=== PATIENT | female | born 1950 | race American Indian/Alaskan Native ===

== ENCOUNTER 2018-01-01 15:48 | Outpatient (CLI) | payer OTHER | END 2018-01-01 15:49 | disposition home or self-care (01) | LOC: LABHHL 15:48 | PROVIDERS: ATTEND Surgery | DX: N63.20 Unspecified lump in the left breast, unspecified quadrant (principal); R92.0 Mammographic microcalcification found on diagnostic imaging of breast | CPT/HCPCS: 88305 ==

== ENCOUNTER 2018-01-18 09:34 | Day surgery (SDC) | payer MEDICARE ==
[2018-01-18] MEDS ORDERED: DILAUDID IV PRN (10:27)
--- NOTE | 2018-01-18 10:27 | Anesthesia Day of Surgery ---
Anesthesia Day of Surgery - Day of Surgery Patient Examined: Yes Patient H&P Reviewed: Yes Patient is NPO: Yes Beta Blockers: Yes
--- NOTE | 2018-01-18 10:27 | Anesthesia Consultation ---
Anesthesia Consult and Med Hx Date of service: 01/18/18 - Airway Anesthetic Teeth Evaluation: Poor, Partials ROM Head & Neck: Adequate Mental/Hyoid Distance: Adequate Mallampati Class: Class II Intubation Access Assessment: Probably Good - Pulmonary Exam CTA: Yes - Cardiac Exam Cardiac Exam: RRR - Pre-Operative Health Status ASA Pre-Surgery Classification: ASA2 Proposed Anesthetic Plan: General - Cardiovascular System Hx Hypertension: Yes (OVER 10 YEARS) Hx Heart Murmur: Yes - Central Nervous System Hx Psychiatric Problems: No - Other Systems Hx Alcohol Use: Yes (OCCA) Hx Substance Use: No Hx Cancer: No Hx Obesity: Yes - Additional Comments Anesthesia Medical History Comments: Informed consent obtained
[2018-01-18] MEDS ORDERED: XYLOCAINE 1% 20 mL ONE ×2 (10:58→12:07)
[2018-01-18] MEDS ORDERED: NACL 0.9% 1000 ML 1,000 ML IV SCH (11:00)
[2018-01-18] MEDS ORDERED: ANCEF/STERILE WATER 2 GM/20 ML IV NR (11:00)
[2018-01-18] MEDS ORDERED: PEPCID IV NR (11:00)
--- NOTE | 2018-01-18 11:35 | Procedure Note ---
Date of procedure: 01/18/18 Pre-op diagnosis: lt breast lesion Post-op diagnosis: same Procedure: needle loc. Anesthesia: local Surgeon: GISEL JOSUE Estimated blood loss: none Pathology: none Condition: stable (surgery)
--- NOTE | 2018-01-18 11:38 | Mammography Report ---
Left breast needle localization: Examination performed using mammographic grid technique. A lateral approach was utilized. A breast marker is targeted. The skin was cleansed and 1% lidocaine used for local anesthesia. A 5 cm Navarro needle was placed confirm with mammography. The wire was introduced followed by removal of the needle with additional position confirmation with mammography. No complications encountered.
[2018-01-18] MEDS ORDERED: MARCAINE 0.25% INFILTRATI ONE ×2 (12:07→14:38)
[2018-01-18] MEDS ORDERED: DIPRIVAN 10 MG/ML IV ONE (14:09)
[2018-01-18] MEDS ORDERED: XYLOCAINE MPF 2% ONE (14:09)
[2018-01-18] MEDS ORDERED: SUBLIMAZE ONE (14:10)
[2018-01-18] MEDS ORDERED: ePHEDrine SULFATE ONE (14:26)
[2018-01-18] MEDS ORDERED: XYLOCAINE 1% 20 mL INFILTRATI ONE (14:38)
[2018-01-18] MEDS ORDERED: NACL 0.9% IR ONE (14:38)
[2018-01-18] MEDS ORDERED: ZOFRAN ONE (14:43)
--- NOTE | 2018-01-18 15:30 | Short Stay Summary ---
Short Stay Documentation Date of service: 01/18/18 - History H&P: obtained from office - Allergies and Medications Current Medications: Allergies GLOVE POWDER Allergy (Uncoded 01/18/18 10:28) Itching Home Medications Medication Instructions Recorded Confirmed Last Taken Type Aspirin [Adult Low Dose Aspirin EC] 81 mg PO DAILY 01/15/18 01/18/18 01/10/18 History Cyclobenzaprine [Flexeril] 10 mg PO TID PRN 01/15/18 01/15/18 01/17/18 History Diclofenac Sodium 75 mg PO DAILY 01/15/18 01/18/18 12/18/17 History Lisinopril/Hydrochlorothiazide 1 each PO DAILY 01/15/18 01/18/18 01/18/18 07:00 History [Zestoretic 10-12.5 mg Tablet] Loratadine [Claritin] 10 mg PO DAILY 01/15/18 01/15/18 01/17/18 History Lovastatin [Altoprev] 20 mg PO QPM 01/15/18 01/15/18 01/17/18 History Metoprolol Tartrate 25 mg PO BID 01/15/18 01/15/18 01/18/18 07:00 History Multivitamin Tab W-MINERAL 1 each PO QD 01/15/18 01/15/18 01/17/18 History [Multiple Vitamin/Mineral (Theragran M)] [place]-3 Fatty Acids [Super Twin 1,250 mg PO DAILY 01/15/18 01/15/18 01/17/18 History Epa-Dha] Omeprazole 20 mg PO DAILY 01/15/18 01/15/18 01/17/18 History Potassium Chloride [Klor-Con 8] 8 meq PO QDAY 01/15/18 01/15/18 01/17/18 History metFORMIN [Glucophage] 500 mg PO BID 01/15/18 01/15/18 01/17/18 History HYDROcodone/APAP 5-325 [[place] 1 each PO Q6HR PRN #25 tablet 01/18/18 Unknown Rx 5/325] Active Medications Sodium Chloride (Nacl 0.9% 1000 Ml) 1,000 mls @ 100 mls/hr IV DIRECT ADIEL Last Admin: 01/18/18 11:42 Dose: 100 mls/hr - Brief post op/procedure progress note Date of procedure: 01/18/18 Pre-op diagnosis: 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 Post-op diagnosis: same Procedure: Left needle localization excisional biopsy Anesthesia: GETA Findings: Left wire present within radiograph specimen Surgeon: RADHIKA BRAND Estimated blood loss: minimal Pathology: list (left breast excisional biopsy) Specimen disposition: to lab Condition: stable - Disposition Condition at discharge: Good Disposition: DC-01 TO HOME OR SELFCARE Short Stay Discharge Plan Activity: other (no heavy lifting) Diet: regular Wound: other (keep incision clean and dry; may shower in 24 hours; no baths, pools or lakes; do not rub or scrub incision) Follow up with: KANDIS PAN MD [Primary Care Provider] - 7 Days RADHIKA BRAND MD [Staff Physician] - 7 Days Prescriptions: HYDROcodone/APAP 5-325 [[place] 5/325] 1 each PO Q6HR PRN #25 tablet PRN Reason: Pain
--- NOTE | 2018-01-18 15:33 | Operative Report ---
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 lRecommendations were to proceed with an excisional biopsy for definitive diagnosis. Patient wished to proceed with the above procedure. Procedure in detail: The patient was taken to radiology for wire placement for localization of area of concern. Patient was then taken to the operating room. Gen. anesthesia was administered. The left breast was prepped and draped in the normal sterile operative fashion. The wire was identified. Timeout was performed. Lateral breast incision was made with a 15 blade knife and dissection taken down to subcutaneous tissues. First began raising of the lateral flap with removal of the wire from the skin, followed by raising of the medial flap, superior flap and inferior flap. The breast area of concern was appropriately removed posteriorly with the aid of the bovie cautery. The wire was not encountered. Specimen was marked and then sent to pathology and radiology; radiograph speciment with wire and clip present. Breast cavity was irrigated and hemostasis was obtained. The breast cavity was anesthetized with 1 % lidocaine mixed with quarter percent Marcaine. The subcutaneous tissues were approximated and closed using interrupted 3-0 Vicryl followed by a running 4-0 Monocryl and skin affix. The patient tolerated surgery very well and she was awake from anesthesia without any complication and transported to PACU in good condition.
--- NOTE | 2018-01-18 15:43 | Post Anesthesia Evaluation ---
- Post Anesthesia Evaluation Patient Participated: Yes Airway Patent: Yes Stable Respiratory Function: Yes Nausea/Vomiting: No Temp > 96.8F: Yes Pain Manageable: Yes Adequeate Hydration: Yes Anesthesia Complications: No
--- NOTE | 2018-01-18 15:47 | Mammography Report ---
Operative surgical specimen: A single tissue specimen is submitted that contains the targeted clip and localizing wire.
[2018-01-18] MEDS ORDERED: NORMODYNE IV ONE ×2 (15:56→16:01)
[2018-01-18 16:42] VITALS: BP 157/76
== END 2018-01-18 17:25 | disposition home or self-care (01) ==
LOC: OR 09:34
PROVIDERS: ATTEND Surgery
DX: D24.2 Benign neoplasm of left breast (principal); I10 Essential (primary) hypertension; E66.9 Obesity, unspecified; Z79.899 Other long term (current) drug therapy; Z91.018 Allergy to other foods
CPT/HCPCS: 19125; 19281; 36415; 76098; 82962; 84132; 88307; J0690; J2405; J2704; J3010; J7030